=== PATIENT | female | born 1935 | race Hispanic/Latino ===

== ENCOUNTER 2021-03-29 08:39 | Day surgery (SDC) | payer MEDICARE ==
[~2021-03-29] VITALS: Ht 160 cm; Wt 67.1 kg
[~2021-03-29 08:39] MED LIST: 0.9%NACL 1000ML 1,000 ML IV ONE; AEC81 PO; ALPR-410 PO; CLON0.1T PO; LABE200T5 PO; OMEP40CA21 PO; ROSU20TA31 PO
[2021-03-29 08:53] VITALS: BP 170/78
[2021-03-29] MEDS ORDERED: PROPOFOL 10 MG/ML 20ML VIAL IV ONE ×2 (09:35)
[2021-03-29 09:57] VITALS: BP 106/41
[2021-03-29 10:02] VITALS: BP 123/52
[2021-03-29 10:07] VITALS: BP 118/61
[2021-03-29 10:12] VITALS: BP 115/60
== END 2021-03-29 10:35 | disposition home or self-care (01) ==
LOC: DAH 08:39
PROVIDERS: ATTEND Internal Medicine
DX: R63.4 Abnormal weight loss (principal); K63.5 Polyp of colon; K29.70 Gastritis, unspecified, without bleeding; I10 Essential (primary) hypertension; E11.9 Type 2 diabetes mellitus without complications; F41.9 Anxiety disorder, unspecified; E66.01 Morbid (severe) obesity due to excess calories; E78.00 Pure hypercholesterolemia, unspecified; D64.9 Anemia, unspecified; R93.3 Abnormal findings on diagnostic imaging of other parts of digestive tract; Z88.8 Allergy status to other drugs, medicaments and biological substances; Z79.82 Long term (current) use of aspirin; Z79.899 Other long term (current) drug therapy; Z20.822 Contact with and (suspected) exposure to COVID-19
CPT/HCPCS: 43239; 45380; 45385; 87635; 88305; 88342; 93005; A4215 ×2; A4221; A4222; A4223; A4606; A4620; A4657; A4663; C9803; J2704 ×2; J7030